=== PATIENT | female | born 1960 | race Caucasian/White ===

== ENCOUNTER 2017-03-01 18:00 | Outpatient (CLI) | payer OTHER ==
--- NOTE | 2017-03-01 18:48 | RAD ---
PA AND LATERAL CHEST: Indication: Cough, shortness of breath. Comparison: 07-02-07 FINDINGS: There is cardiomegaly. Pulmonary vasculature is normal. Lungs are clear. There is a single lead AICD overlying the left chest wall. There is ACDF involving the lower cervical spine. Midline sternotomy change post CABG change is similar. No acute osseous abnormality is evident. There is stable change of the right rotator cuff. IMPRESSION: No acute cardiopulmonary abnormalities. POS: [facility]
== END 2017-03-01 18:01 | disposition home or self-care (01) ==
LOC: MADRAD 18:00
PROVIDERS: ATTEND Physician Assistant
DX: R50.9 Fever, unspecified (principal); R06.02 Shortness of breath; I48.91 Unspecified atrial fibrillation
CPT/HCPCS: 71020

== ENCOUNTER 2018-05-27 14:18 | Outpatient (CLI) | payer BC ==
[2018-05-27 14:54] LABS: Hemoglobin 12.5 g/dL (12.0-16.0); Mean Corpuscular HGB CONC 33.1 g/dL (32.0-36.0); Mean Corpuscular Hemoglobin 28.9 pg (27.0-31.0); Mean Corpuscular Volume 87.5 fL (78.0-98.0); Mean Platelet Volume 8.2 fL (7.4-10.4); Platelet Count 229 thou/uL (130-400); RBC Distribution Width 12.1 % (11.5-14.5); Red Blood Cell (RBC) Count 4.33 mill/uL (4.20-5.40)
--- NOTE | 2018-05-27 14:54 | RAD ---
TWO VIEW CHEST: COMPARISON: 03/01/2017. INDICATION: Cough. FINDINGS: Redemonstration of an enlarged cardiac silhouette. There is vascular congestion. No obvious consoli dation, significant effusion, or discrete pneumothorax. The chest is otherwise similar. IMPRESSION: 1. Evidence of congestive heart failure. Correlate clinically. 2. As necessary, continued imaging followup may be obtained. POS: [facility]
[2018-05-27 15:00] LABS: ALT (SGPT) 18 U/L (8-55); AST (SGOT) 21 U/L (5-34); Albumin 4.1 g/dL (3.5-5.0); Alkaline Phosphatase 79 U/L (40-150); Anion Gap 13 mmol/L (10-20); BUN (Urea Nitrogen) 14 mg/dL (9.8-20.1); Bilirubin, Total 0.8 mg/dL (0.2-1.2); Calc. Creatinine Clearance 0 mL/min (70-130); Calcium 9.6 mg/dL (7.8-10.44); Carbon Dioxide 25 mmol/L (22-29); Chloride 105 mmol/L (98-107); Estimated GFR-MDRD 60; Globulin 3.2 g/dL (2.4-3.5); Glucose 89 mg/dL (70-105); Protein, Total 7.3 g/dL (6.0-8.3); Sodium 139 mmol/L (136-145)
== END 2018-05-27 14:19 | disposition home or self-care (01) ==
LOC: MADLAB 14:18
PROVIDERS: ATTEND Physician Assistant
DX: E86.0 Dehydration (principal); R05 Cough; I50.9 Heart failure, unspecified
CPT/HCPCS: 36415; 71046; 80053; 83880; 85027

== ENCOUNTER 2018-07-15 12:52 | Outpatient (CLI) | payer BC ==
[~2018-07-15 12:52] MED LIST: Iopamidol 370 76% 100 ML VIAL ONE
--- NOTE | 2018-07-15 15:50 | CT ---
CT ABDOMEN AND PELVIS WITH CONTRAST: HISTORY: Right side abdomen pain. History of cholecystectomy and hysterectomy. FINDINGS: ABDOMEN: The lung bases are clear. The liver, spleen, and pancreas regions appear unremarkable. Th e gallbladder has been removed. The right and left adrenal glands and the right and left kidneys are normal in size. No significant periaortic or mesenteric adenopathy. PELVIS: The appendix is normal. There are no signs of any significant pelvic lymphadenopathy or mas s. No free fluid. IMPRESSION: 1. No acute abnormalities of the abdomen or pelvis. 2. Normal appendix. 3. Postoperative cholecystectomy change. POS: [facility]
== END 2018-07-15 12:53 | disposition home or self-care (01) ==
LOC: MADCT 12:52
PROVIDERS: ATTEND Physician Assistant
DX: R10.11 Right upper quadrant pain (principal); Z98.890 Other specified postprocedural states; Z90.49 Acquired absence of other specified parts of digestive tract
CPT/HCPCS: 74177; Q9967

== ENCOUNTER 2021-08-17 06:34 | Emergency (ER) | payer OTHER, BC ==
[2021-08-17] MEDS ORDERED: Acetaminophen 325 MG TAB ONE (07:30)
[2021-08-17] MEDS ORDERED: Potassium Chloride 20 MEQ TAB ONE (07:45)
[2021-08-17 08:06] LABS: #Eosinphils 0.1 thou/uL (0.0-0.7); #Monocytes 0.4 thou/uL (0.11-0.59); #Neutrophils 3.7 thou/uL (1.40-6.50); %Basophils 0.5 % (0.0-1.0); %Lymphocytes 27.5 % (21.0-51.0); %Monocytes 7.1 % (0.0-10.0); %Neutrophils 62.9 % (42.0-75.0); Hemoglobin 11.8 g/dL (12.0-16.0); Mean Corpuscular HGB CONC 30.7 g/dL (32.0-36.0); Mean Corpuscular Hemoglobin 27.5 pg (27.0-31.0); Mean Corpuscular Volume 89.6 fL (78.0-98.0); Mean Platelet Volume 12.1 fL (7.4-10.4); Platelet Count 141 thou/uL (130-400); Red Blood Cell (RBC) Count 4.27 mill/uL (4.20-5.40); White Blood Cell (WBC) Count 5.9 thou/uL (4.8-10.8)
[2021-08-17 08:07] LABS: MDiff Complete? YES
[2021-08-17 08:14] LABS: ALT (SGPT) 14 U/L (8-55); AST (SGOT) 21 U/L (5-34); Alkaline Phosphatase 66 U/L (40-110); Anion Gap 15 mmol/L (10-20); BUN (Urea Nitrogen) 15 mg/dL (9.8-20.1); Bilirubin, Total 0.7 mg/dL (0.2-1.2); Calc. Creatinine Clearance 0 mL/min (70-130); Calcium 9.5 mg/dL (7.8-10.44); Carbon Dioxide 27 mmol/L (23-31); Chloride 104 mmol/L (98-107); Globulin 2.9 g/dL (2.4-3.5); Glucose 112 mg/dL (80-115); Magnesium 1.9 mg/dL (1.6-2.6); Potassium 2.6 mmol/L (3.5-5.1); Protein, Total 6.9 g/dL (5.8-8.1); Sodium 143 mmol/L (136-145)
[2021-08-17] MEDS ORDERED: Ondansetron ODT 4 MG TAB SL PRN (08:40)
[2021-08-17] MEDS ORDERED: Acetaminophen 325 MG TAB PO PRN (08:40)
[2021-08-17] MEDS ORDERED: Sodium Chloride 0.9% 1,000 ML IV SCH (08:40)
[2021-08-17] MEDS ORDERED: Ondansetron PF 4 MG/2 ML Vial IVP PRN (08:40)
[2021-08-17] MEDS ORDERED: Potassium Chloride 20 MEQ in Premix Bag 1 BAG IVPB SCH (11:30)
== END 2021-08-17 10:10 | disposition short-term general hospital (02) ==
LOC: MADERS 06:34
DX: S13.4XXA Sprain of ligaments of cervical spine, initial encounter (principal); S00.83XA Contusion of other part of head, initial encounter; I45.81 Long QT syndrome; E87.6 Hypokalemia; M54.50 Low back pain, unspecified; R20.2 Paresthesia of skin; I11.0 Hypertensive heart disease with heart failure; I50.9 Heart failure, unspecified; I25.10 Atherosclerotic heart disease of native coronary artery without angina pectoris; E78.5 Hyperlipidemia, unspecified; E78.00 Pure hypercholesterolemia, unspecified; Z79.51 Long term (current) use of inhaled steroids; Z79.02 Long term (current) use of antithrombotics/antiplatelets; Z79.82 Long term (current) use of aspirin; Z79.899 Other long term (current) drug therapy; W01.198A Fall on same level from slipping, tripping and stumbling with subsequent striking against other object, initial encounter; Y92.89 Other specified places as the place of occurrence of the external cause
CPT/HCPCS: 36415; 70450; 72125; 72131; 80053; 83735; 85025; 93005; 94760; 96365; 96366; J3480